=== PATIENT | male | born 1995 | race Caucasian/White ===

== ENCOUNTER 2017-07-09 06:40 | Emergency (ER) | payer OTHER ==
[~2017-07-09] VITALS: Wt 63.5 kg
[2017-07-09 06:44] VITALS: BP 142/73
[2017-07-09] MEDS ORDERED: NAPROSYN500 MG PO (07:20)
[2017-07-09] MEDS ORDERED: AMOXICILLIN500 M2 PO (07:20)
== END 2017-07-09 08:37 | disposition home or self-care (01) ==
LOC: ED 06:40
DX: K05.10 Chronic gingivitis, plaque induced (principal); F17.200 Nicotine dependence, unspecified, uncomplicated; F10.10 Alcohol abuse, uncomplicated

== ENCOUNTER 2021-04-29 08:29 | Emergency (ER) | payer OTHER ==
[~2021-04-29] VITALS: Wt 61.2 kg
[~2021-04-29 08:29] MED LIST: AMOXICILLIN500 M2 PO; NAPROSYN500 MG PO
[2021-04-29 08:42] VITALS: BP 135/93
[2021-04-29] MEDS ORDERED: CLEOCIN HCL300 MG PO (10:33)
== END 2021-04-29 10:41 | disposition home or self-care (01) ==
LOC: ED 08:29
DX: L02.229 Furuncle of trunk, unspecified (principal); L02.424 Furuncle of left upper limb; L02.423 Furuncle of right upper limb; L02.426 Furuncle of left lower limb; L02.425 Furuncle of right lower limb

== ENCOUNTER 2021-08-06 18:43 | Emergency (ER) | payer OTHER ==
[~2021-08-06] VITALS: Ht 177.8 cm; Wt 61.2 kg
[~2021-08-06 18:43] MED LIST changes: +CLEOCIN HCL300 MG PO
[2021-08-06 18:56] VITALS: BP 128/88
[2021-08-06 21:12] LABS: BILIRUBIN Negative (Negative); BLOOD Negative (Negative); CLARITY Turbid (Clear); COLOR Yellow (Yellow); GLUCOSE Negative (Negative); KETONE Trace (Negative); LEUKO ESTERASE Negative (Negative); NITRITE Negative (Negative); PH 7.5 (4.5-8.0); SPECIFIC GRAVITY >= 1.030 (1.001-1.030)
[2021-08-06 21:26] LABS: BACTERIA 2+; EPITHELIAL CELLS 0-2; RBC 0-2 rbc/hpf (0-2); WBC 0-2 wbc/hpf (0-5)
== END 2021-08-06 22:29 | disposition home or self-care (01) ==
LOC: ED 18:43
PROVIDERS: Physician Assistant
DX: N50.89 Other specified disorders of the male genital organs (principal)

== ENCOUNTER 2025-08-29 18:16 | Emergency (ER) | payer OTHER ==
[~2025-08-29] VITALS: Ht 177.8 cm; Wt 59.0 kg
[2025-08-29 18:30] VITALS: BP 155/84
[2025-08-29] MEDS ORDERED: SODIUM CHLORIDE 0.9% 1,000 ML IV ONE (18:40)
[2025-08-29] MEDS ORDERED: Ondansetron Hydrochloride 4 MG/2 ML VIAL IV ONE (18:40)
[2025-08-29 18:58] LABS: BASO # 0.0 10*3/uL (0.0-0.1); BASO % 0.3 % (0.0-1.0); EOS # 0.0 10*3/uL (0.0-0.4); EOS % 0.4 % (1.0-4.0); MEAN CELL VOLUME 88.3 fl (80.0-94.0); MEAN CORPUSCULAR HGB 28.3 pg (27.0-31.0); MEAN PLATELET VOLUME 10.3 fl (9.6-12.3); MONO # 0.6 10*3/uL (0.1-1.0); MONO % 6.4 % (3.0-9.0); NEUT # 6.6 10*3/uL (2.3-7.9); NEUT % 72.1 % (47.0-73.0); NUCLEATED RED BLOOD CELL 0.0 % (0.0-0.0); NUCLEATED RED BLOOD CELL 0.0 10*3/uL (0.0-0.0); PLATELET COUNT AUTOMATED 251 10*3/uL (130-400); RED CELL DISTRI WIDTH 13.2 % (0-14.5)
[2025-08-29 19:19] LABS: BUN 14 mg/dl (9-23); SGPT/ALT 46 U/L (5-49)
[2025-08-29 19:36] LABS: BILIRUBIN Negative (Negative); BLOOD Negative (Negative); CLARITY Clear (Clear); COLOR Yellow (Yellow); KETONE Negative (Negative); LEUKO ESTERASE Negative (Negative); NITRITE Negative (Negative); SPECIFIC GRAVITY 1.010 (1.001-1.030); UROBILINOGEN 0.2 E.U./dl (0.0-1.0)
[2025-08-29 19:38] LABS: PH 8.5 (4.5-8.0)
[2025-08-29 19:43] LABS: URINE AMPHETAMINES Negative (1000ng/ml); URINE BARBITURATES Negative (200ng/ml); URINE BENZODIAZEPINES Negative (200ng/ml); URINE CANNABINOIDS (THC) Positive (50ng/ml); URINE COCAINE Negative (300ng/ml); URINE METHADONE Negative (300ng/ml); URINE OPIATES Negative (300ng/ml); URINE PHENCYCLIDINE Negative (25ng/ml)
[2025-08-29 19:48] LABS: BACTERIA TRACE; EPITHELIAL CELLS 0-2; WBC 0-2 wbc/hpf (0-5)
== END 2025-08-29 20:26 | disposition home or self-care (01) ==
LOC: ED 18:16
PROVIDERS: Nurse Practitioner Family
DX: T62.0X2A Toxic effect of ingested mushrooms, intentional self-harm, initial encounter (principal); F17.210 Nicotine dependence, cigarettes, uncomplicated; Y92.89 Other specified places as the place of occurrence of the external cause